=== PATIENT | male | born 1935 | race Caucasian/White ===

== ENCOUNTER 2016-12-19 09:35 | Inpatient (IN) ==
[2016-12-12 14:37] LABS: Appearance,Urine CLEAR; Bacteria,Urine FEW /hpf (0); Bilirubin,Urine NEG (NEG); Color,Urine STRAW; Glucose,Urine (UA) NEGATIVE (NEG); Leukocyte Esterase,Urine 500 /uL (NEG); Nitrate,Urine NEG (NEG); Protein,Urine NEG (NEG); Specific Gravity,Urine 1.008 (1.000-1.035); Urine Blood 0.03 mg/dL (<0.03); Urine Hyaline Cast 2 /lpf (0-2); Urine RBC 3 /hpf (0-1); Urine Squamous Epithelial Cell 0 /hpf (0-4); Urine Transitional Epi Cells < 1 /hpf (0-2); Urine WBC 11 /hpf (0-4); Urobilinogen,Urine NEG (NEG)
[2016-12-12 14:43] LABS: Basophils # (Auto) 0 K/mcL (0.0-0.3); Basophils % (Auto) 0.2 % (0.0-2.0); Eosinophils # (Auto) 0.2 K/mcL (0.0-0.7); Eosinophils % (Auto) 1.7 % (0.0-7.0); Granulocytes % (Auto) 70.5 % (38.0-78.0); Lymphocytes # (Auto) 1.7 K/mcL (1.5-4.8); Lymphocytes % (Auto) 18.3 % (15.5-49.0); Mean Cell Volume 91.4 fL (80.0-100.0); Mean Corpuscular HGB Conc 33.5 g/dL (31.0-36.0); Mean Corpuscular Hemoglobin 30.6 pg (26.0-34.0); Monocytes # (Auto) 0.8 K/mcL (0.1-0.9); Monocytes % (Auto) 9.3 % (1.0-12.0); Platelet Count 189 K/mcL (140-440); Red Cell Distribution Width 15.4 % (11.5-14.5)
[2016-12-12 14:53] LABS: Blood Urea Nitrogen 28 mg/dl (8-23)
[~2016-12-19 09:35] MED LIST: ACETAMINOPHEN 500 MG TABLET PO SCH; CELECOXIB 200 MG CAPSULE PO SCH; PREGABALIN 75 MG CAPSULE PO SCH; ceFAZolin 1 GM VIAL IV SCH; oxyCODONE 10 MG TAB.ER.12H PO SCH
[2016-12-19 11:23] LABS: Appearance,Urine CLOUDY; Bacteria,Urine 0 /hpf (0); Bilirubin,Urine NEG (NEG); Color,Urine YELLOW; Glucose,Urine (UA) NEGATIVE (NEG); Leukocyte Esterase,Urine NEG /uL (NEG); Nitrate,Urine NEG (NEG); Protein,Urine >=500 mg/dL (NEG); Specific Gravity,Urine 1.012 (1.000-1.035); Triple Phosphate Crystal,Urine MANY /hpf (0); Urine Blood NEG mg/dL (<0.03); Urine RBC 0 /hpf (0-1); Urine Squamous Epithelial Cell 0 /hpf (0-4); Urine WBC 8 /hpf (0-4); Urobilinogen,Urine NEG (NEG)
[2016-12-19] MEDS ORDERED: DEXAMETHASONE 10 MG/ML VIAL IV ONE (12:50)
[2016-12-19] MEDS ORDERED: SUCCINYLCHOLINE 20 MG/ML ML IV ONE (12:50)
[2016-12-19] MEDS ORDERED: ETOMIDATE 20 MG/10 ML VIAL IV ONE (12:50)
[2016-12-19] MEDS ORDERED: MIDAZOLAM 2 MG/2 ML VIAL IV ONE (12:50)
[2016-12-19] MEDS ORDERED: PHENYLEPHRINE 10 MG/ML VIAL IV ONE (12:50)
[2016-12-19] MEDS ORDERED: ONDANSETRON 4 MG/2 ML VIAL IV ONE (12:50)
[2016-12-19] MEDS ORDERED: LIDOCAINE HCL/PF 100 MG/5 ML SYRINGE IV ONE (12:50)
[2016-12-19] MEDS ORDERED: fentaNYL 250 MCG/5 ML VIAL IV ONE (12:50)
[2016-12-19] MEDS ORDERED: HETASTARCH 6% 500 ML BAG IV ONE (12:50)
[2016-12-19] MEDS ORDERED: TRANEXAMIC ACID 1,000 MG/10 ML VIAL IV ONE ×2 (12:50→14:27)
[2016-12-19] MEDS ORDERED: MEPERIDINE 25 MG/ML SYRINGE IV PRN (13:53)
[2016-12-19] MEDS ORDERED: NALOXONE HCL 0.4 MG/ML VIAL IV PRN (13:53)
[2016-12-19] MEDS ORDERED: IPRATROPIUM/ALBUTEROL 3 ML AMPUL.NEB NEB PRN (13:53)
[2016-12-19] MEDS ORDERED: ATROPINE SULFATE 0.4 MG/ML VIAL IV PRN (13:53)
[2016-12-19] MEDS ORDERED: ACETAMINOPHEN 1,000 MG/100 ML BOTTLE IV ONE (13:53)
[2016-12-19] MEDS ORDERED: BENZOCAINE/MENTHOL 1 LOZENGE PO PRN ×2 (13:53→14:27)
[2016-12-19] MEDS ORDERED: FLUMAZENIL 0.1 MG/ML ML IV PRN (13:53)
[2016-12-19] MEDS ORDERED: METHOCARBAMOL 1,000 MG/10 ML VIAL IV PRN (13:53)
[2016-12-19] MEDS ORDERED: fentaNYL 100 MCG/2 ML VIAL IV PRN (13:53)
[2016-12-19] MEDS ORDERED: ePHEDrine 50 MG/ML AMPUL IV PRN (13:53)
[2016-12-19] MEDS ORDERED: ONDANSETRON 4 MG/2 ML VIAL IV PRN ×2 (13:53→14:27)
[2016-12-19] MEDS ORDERED: METOPROLOL TARTRATE 5 MG/5 ML VIAL IV PRN (13:53)
[2016-12-19] MEDS ORDERED: HYDROmorphone 2 MG/ML SYRINGE IV PRN ×2 (13:53→14:27)
[2016-12-19] MEDS ORDERED: diphenhydrAMINE 50 MG/ML VIAL IV PRN (13:53)
[2016-12-19] MEDS ORDERED: LACTATED RINGERS 1,000 ML IV SCH (14:00)
--- NOTE | 2016-12-19 14:25 | Brief Operative Note ---
Date of procedure: 12/19/16 Pre-op diagnosis: Right shoulder rca Post-op diagnosis: same Procedure: right reverse TSA AND BICEP TENODESIS Grafts/Implants: Yes Anesthesia: JOE Surgeon: Celestino Chambers Oracle Application Consultant: Yosef Downing Estimated blood loss (cc): 60 Specimens Removed/Pathology: none sent Condition: stable Disposition: PACU
[2016-12-19] MEDS ORDERED: POLYETHYLENE GLYCOL 3350 17 GM PACKET PO PRN (14:27)
[2016-12-19] MEDS ORDERED: HYDROcodone/APAP 10/325MG TABLET PO PRN (14:27)
[2016-12-19] MEDS ORDERED: TEMAZEPAM 15 MG CAPSULE PO PRN (14:27)
[2016-12-19] MEDS ORDERED: FLEETS ADULT ENEMA PR PRN (14:27)
[2016-12-19] MEDS ORDERED: KETOROLAC 15 MG/ML VIAL IV PRN (14:27)
[2016-12-19] MEDS ORDERED: BISACODYL 10 MG SUPP.RECT PR PRN (14:27)
[2016-12-19] MEDS ORDERED: ACETAMINOPHEN 325 MG TABLET PO PRN (14:27)
[2016-12-19] MEDS ORDERED: MAGNESIUM HYDROXIDE 30 ML ORAL.SUSP PO PRN (14:27)
[2016-12-19] MEDS ORDERED: BUPIVACAINE W/EPI 0.5% 50 ML VIAL IJ ONE (14:35)
[2016-12-19] MEDS ORDERED: GENTAMICIN SULFATE 800 MG/20 ML VIAL IR ONE (14:35)
--- NOTE | 2016-12-19 15:20 | Operative Note ---
DATE OF OPERATION: 12/19/2016 PREOPERATIVE DIAGNOSIS: Right shoulder rotator cuff arthropathy. POSTOPERATIVE DIAGNOSIS: Right shoulder rotator cuff arthropathy. PROCEDURE: Right reverse total shoulder with a biceps tenodesis. SURGEON: Celestino Chambers MD. ADMINISTRATIVE SUPPORT SPECIALIST: Yosef Downing PA-C. ANESTHESIA: General LMA anesthesia. COMPLICATIONS: None. DESCRIPTION OF PROCEDURE: The patient was brought to the operating room and put to sleep with general LMA anesthesia. Once asleep, the patient had the right shoulder sterilely prepped and draped in a beach chair position. Ioban was placed over the skin, and we confirmed the operative site with a time out and preop antibiotics and tranexamic acid given. Once this was done, we then made a deltopectoral approach, subluxed the deltoid laterally with the cephalic vein, released the subscap and performed a capsular release back to the 7 o'clock position. Once this was done, we then dislocated the humeral head and then made our neck cut at the anatomical neck region. Once this was done, we subluxed the head posteriorly, performed a 360 degree capsulotomy around the glenoid and removed the remnants of the biceps. The biceps tendon was released. We then reamed up to the size 40, implanted a metaglene with a central screw 36 mm, and then three surrounding screws were placed, a 24, 32 and 36. Once these were locked, we placed a 40 mm glenosphere, 2 mm of eccentricity and 6 mm of offset. Once this was done, this was tapped into place. We prepared the humerus, reamed up to the size 13, trialed the size 13 stem with a standard thickness poly. This seemed to fit very nicely. We tapped the stem into place, and then the proximal stem component was tapped into place. We irrigated thoroughly, reduced the humerus. It was stable throughout the full range of motion. We flushed the shoulder with copious amounts of irrigation and performed a local injection. We closed the fascial layer with 2-0 Vicryl. We closed the skin with 2-0 Vicryl and then he had an adhesive closure. Sterile bandage applied. The patient was placed into a [employer] sling. Blood loss about 60 to 120 mL. JEANNIE:boris Job ID: [id number] Doc ID: [id number] Celestino Chambers MD
--- NOTE | 2016-12-19 15:59 | XRay Report ---
CLINICAL INFORMATION: Postop total shoulder prostheses COMPARISON: None. FINDINGS: The total shoulder prosthesis is anatomically aligned. No osseous abnormality. Soft tissues swelling seen as expected IMPRESSION: Negative Incidental note: Right lower lobe infiltrate incompletely included on the film. Suggest two-view chest x-ray Interpreted and Authenticated by: Ketan Ravi 12/19/16
[2016-12-19] MEDS: 0.45 % SODIUM CHLORIDE 1,000 ML IV SCH (16:43)
[2016-12-19] MEDS ORDERED: SIMVASTATIN 40 MG TABLET PO SCH (21:00)
[2016-12-19] MEDS ORDERED: SENNOSIDES 1 TABLET PO SCH (21:00)
[2016-12-19] MEDS ORDERED: FUROSEMIDE 40 MG TABLET PO SCH (21:00)
[2016-12-19] MEDS: ceFAZolin 1 GM VIAL IV SCH (21:18)
[2016-12-19] MEDS: DABIGATRAN ETEXILATE MESYLATE 75 MG CAPSULE PO SCH (21:19)
[2016-12-19] MEDS: 0.9 % SODIUM CHLORIDE 10 ML SYRINGE IV SCH (21:20)
[2016-12-19] MEDS: DOCUSATE SODIUM 100 MG CAPSULE PO SCH (21:20)
[2016-12-20] MEDS: 0.45 % SODIUM CHLORIDE 1,000 ML IV SCH (01:59)
[2016-12-20] MEDS: ceFAZolin 1 GM VIAL IV SCH (04:50)
[2016-12-20] MEDS: 0.9 % SODIUM CHLORIDE 10 ML SYRINGE IV SCH (04:50)
--- NOTE | 2016-12-20 07:56 | Orthopedic Progress Note ---
Subjective Patient information: Note initiated : 12/20/16 at 7:55 am Service Date, if different from initiated Date: [] Patient: Steve Franklin 81 y/o M admitted on 12/19/16 for Right Total Shoulder Arthroplasty with Bicep . Chief Complaint: [Pt is stable this morning on post operative day 1 without any significant concerns or complaints. Patients vital signs have remained stable. Patients dressing is dry and exhibits a grossly intact neurovascular and neuromotor exam. Patients 10 point ROS is otherwise negative. ] Objective Vital signs: Vital Signs Temp Pulse Pulse Pulse Resp BP Pulse Ox 12/20/16 07:24 98 12/20/16 07:23 89 12 98 12/20/16 07:19 97.2 F 16 127/71 97 12/20/16 03:10 97.5 F 75 16 121/87 93 12/19/16 23:40 97.6 F 69 16 115/71 12/19/16 20:53 96 12/19/16 20:52 96 12/19/16 19:00 97.3 F 88 16 108/55 98 12/19/16 18:10 92/57 97 12/19/16 17:10 103/62 94 12/19/16 16:40 118/77 96 12/19/16 16:39 83 18 96 12/19/16 16:10 124/82 12/19/16 15:55 124/91 92 12/19/16 15:40 115/71 98 12/19/16 15:30 94 12/19/16 15:25 122/82 95 12/19/16 15:15 96.9 F L 81 16 109/73 100 12/19/16 15:02 87 16 130/59 100 12/19/16 14:52 85 18 117/65 99 12/19/16 14:47 76 16 130/66 100 12/19/16 14:42 84 15 111/70 100 12/19/16 14:40 96.6 F L 82 16 110/61 97 12/19/16 14:37 87 87 15 124/61 97 12/19/16 12:00 97.5 F 60 20 132/80 97 12/19/16 09:35 96.9 F L 66 20 124/80 97 Intake and Output 12/19/16 12/20/16 12/20/16 21:59 05:59 13:59 Intake Total 1440 / 1440 1102 / 1102 Output Total 150 / 150 1100 / 1100 Balance 1290 / 1290 2 / 2 Intake: IV 500 / 500 927 / 927 Sodium Chloride 0.45% 1, 927 / 927 000 ml @ 100 mls/hr IV . Q10H [facility] Rx#:[id number] Oral 940 / 940 175 / 175 Output: Urine Catheter Amount 150 / 150 1100 / 1100 Other: Meal Dinner Percent of Meal Consumed 50% Feeding Ability Independent Weight 225 lb Intake & Output: Intake & Output 12/19/16 12/20/16 12/20/16 21:59 05:59 13:59 Intake Total 1440 / 1440 1102 / 1102 Output Total 150 / 150 1100 / 1100 Balance 1290 / 1290 2 / 2 Weight 225 lb Intake: IV 500 / 500 927 / 927 Sodium Chloride 0.45% 1, 927 / 927 000 ml @ 100 mls/hr IV . Q10H [facility] Rx#:[id number] Oral 940 / 940 175 / 175 Output: Urine Catheter Amount 150 / 150 1100 / 1100 Other: Meal Dinner Percent of Meal Consumed 50% Feeding Ability Independent Incision: Yes healing Incision clean and dry: Yes Dressing: Yes clean, Yes dry Weight bearing status: full Neurological exam IM: Yes CN II-XII intact, Yes neurovascular intact Extremities exam IM: Yes neurovascular intact - Labs CBC & BMP: 12/12/16 13:33 12/12/16 13:33 Labs: Orthopedic Labs 12/12/16 13:33 PT 13.7 INR 1.0 APTT 29 12/12/16 13:33 Hgb 16.2 Hct 48.5 Assessment and Plan (1) Hx of total shoulder replacement Patient has been educated regarding wound care and dressings, follow up recommendations, and medication use. We will f/u with the patient within 2-3 weeks for wound check. Status: Acute
--- NOTE | 2016-12-20 07:58 | Discharge Summary ---
Ortho Discharge - TSA - Patient Instructions Diet: Regular Diet Activity: activity as tolerated, weight bearing as tolerated Total Shoulder Protocol: Leave immobilizer in place except for bathing and ROM. Abduction pillow. Continue to wear sling until seen by physician. Codman Pendulum : These exercises use momentum produced by your body to move your shoulder joint. Bend your knees and shift your weight to your front leg, then back, allowing your arm to swing in the same directions. Using the same technique, alternately shift your weight between your right and left legs, allowing your arm to swing from side to side. These exercises are also performed in counterclockwise and clockwise circular motions. Typically these exercises are performed several times per day, for a set number repetitions or minutes, such as 20 times in a row or 5 minutes at a time. Dressing Care: May shower in 2 days Patient Education: Joint Replacement Surgery (DC) - Problem Maintenance (1) Hx of total shoulder replacement Status: Acute - Follow Up Plan Follow Up Appointments: Celestino Chambers MD [Physician] - 01/03/17 Disposition: Home, Self-Care Prognosis: Good Rehab Potential: Good I certify that the patient requires SNF services: No Overall status at discharge: patient is progressing back to baseline - Orders For Discharge Prescriptions: Docusate Sodium [Colace] 100 mg PO BID #60 capsule HYDROcodone/APAP 10/325MG [[place] 10/325Mg] 1 - 2 tab PO Q4HP PRN #75 tablet PRN Reason: Pain
[2016-12-20] MEDS ORDERED: POTASSIUM CHLORIDE 20 MEQ TABLET PO SCH (08:00)
[2016-12-20] MEDS: DABIGATRAN ETEXILATE MESYLATE 75 MG CAPSULE PO SCH (08:42)
[2016-12-20] MEDS: DOCUSATE SODIUM 100 MG CAPSULE PO SCH (08:42)
[2016-12-20] MEDS ORDERED: SPIRONOLACTONE 25 MG TABLET PO SCH (09:00)
[2016-12-20] MEDS ORDERED: FUROSEMIDE 40 MG TABLET PO SCH (09:00)
[2016-12-20] MEDS ORDERED: LISINOPRIL 10 MG TABLET PO SCH (09:00)
[2016-12-20] MEDS ORDERED: NEBIVOLOL HCL 20 MG PO SCH (09:00)
[2016-12-20] MEDS ORDERED: PNEUMOCOCCAL 23-VAL P-SAC VAC 0.5 ML VIAL IM ONE (10:00)
== END 2016-12-20 10:20 | disposition home or self-care (01) | DRG 483 ==
LOC: MEDSUR 09:35
PROVIDERS: ADMIT Orthopaedic Surgery; ATTEND Orthopaedic Surgery